=== PATIENT | female | born 1945 | race Caucasian/White ===

== ENCOUNTER 2022-11-28 19:12 | Emergency (ER) | payer MEDICARE, BC ==
[~2022-11-28] VITALS: Ht 160 cm; Wt 108.9 kg
[2022-11-28] MEDS ORDERED: LOSA1TAB39 PO (19:36)
[2022-11-28] MEDS ORDERED: ASPI81TA31 PO (19:36)
[2022-11-28] MEDS ORDERED: GLIM4TAB37 PO (19:36)
[2022-11-28] MEDS ORDERED: EZET10TA15 PO (19:36)
[2022-11-28] MEDS ORDERED: DAPA10TA PO (19:36)
[2022-11-28] MEDS ORDERED: METF-440 PO (19:36)
[2022-11-28] MEDS ORDERED: TIMO5DRO18 OP (19:36)
[2022-11-28] MEDS ORDERED: LIRA0.6P2 SUBCUT (19:36)
[2022-11-28] MEDS ORDERED: AMLO10TA59 PO (19:36)
[2022-11-28] MEDS ORDERED: MECL-225 PO (19:36)
--- NOTE | 2022-11-28 19:50 | NUR ---
Dr. Hong in room examining patient.
[2022-11-28] MEDS ORDERED: HYDR-3980 PO (20:10)
[2022-11-28] MEDS ORDERED: ACYC-108 PO (20:10)
[2022-11-28] MEDS ORDERED: BLOO-1730 MC (20:10)
[2022-11-28] MEDS ORDERED: HYDROCODONE/APAP 10-325 MG TABLET PO ONE (20:15)
[2022-11-28] MEDS ORDERED: HYDROCODONE/APAP 5-325MG TABLET ONE (20:19)
--- NOTE | 2022-11-28 20:28 | NUR ---
Patient discharged to home in stable condition. Written and verbal after care instructions given. Patient verbalizes understanding of instructions. Stressed follow up or return to ER for worsening s/s. Patient refused [place] at discharge, Teresa ROSE witnessed medication return [facility].
[2022-11-28 21:15] VITALS: BP 138/85
== END 2022-11-28 20:35 | disposition home or self-care (01) ==
LOC: ER 19:24
DX: B02.9 Zoster without complications (principal); E11.9 Type 2 diabetes mellitus without complications; Z79.84 Long term (current) use of oral hypoglycemic drugs; E78.5 Hyperlipidemia, unspecified; Z79.82 Long term (current) use of aspirin
CPT/HCPCS: A4663